=== PATIENT | male | born 1955 | race Two or more races ===

== ENCOUNTER 2022-10-18 22:27 | Emergency (ER) | payer OTHER ==
[~2022-10-18] VITALS: Ht 167.6 cm; Wt 89.8 kg
[2022-10-18] MEDS ORDERED: LOSARTAN POTAS100 MG PO (23:18)
[2022-10-18] MEDS ORDERED: BISOPROLOL-HCT1 EACH PO (23:18)
[2022-10-18] MEDS ORDERED: SYNTHROID75 MCG PO (23:19)
== END 2022-10-19 04:26 | disposition home or self-care (01) ==
LOC: ER 22:27
DX: M94.0 Chondrocostal junction syndrome [Tietze] (principal)